=== PATIENT | male | born 1960 | race Caucasian/White ===

== ENCOUNTER 2017-12-09 10:45 | Emergency (ER) | payer SELFPAY ==
[2017-12-09 10:47] VITALS: BP 189/105; PULSE 78; RESP 18; TEMP 36.9; O2SAT 97; BMI 26.4
--- NOTE | 2017-12-09 11:25 | ED.VISSUMM ---
- ER Visit Summary Date of Service: 12/09/17 Chief Complaint: Rash History of Present Illness: The patient is a 57 M with a rash on his right leg. This is very painful. He has noted tiny blisters. No fever or systemic symptoms. No other complaints. Physical Examination: Hypertensive but otherwise vitals unremarkable. Patient has a vesicular erythematous rash over his right medial calf. He is neurovascular intact distally. No overlying warmth or redness. Test Results: None indicated Emergency Department Course and Treatment: Patient has shingles and will be treated with a course of acyclovir, prednisone and Percocet. His prescription database report was negative. Treatment Plan: As above Disposition: Discharged Impression: 1. Shingles right leg This note was generated with [employer] dictation software. It may contain incorrect words, spelling, and punctuation that were not noted in review of the chart prior to signing ED Disposition - Plan for ED Patient: Chief Complaint: Rash Referrals: [facility] Doctor,Out of [Primary Care Provider] -
--- NOTE | 2017-12-09 11:28 | ED.DCSUM_ITS ---
- ER Visit Summary Date of Service: 12/09/17 Chief Complaint: Rash History of Present Illness: The patient is a 57 M with a rash on his right leg. This is very painful. He has noted tiny blisters. No fever or systemic symptoms. No other complaints. Physical Examination: Hypertensive but otherwise vitals unremarkable. Patient has a vesicular erythematous rash over his right medial calf. He is neurovascular intact distally. No overlying warmth or redness. Test Results: None indicated Emergency Department Course and Treatment: Patient has shingles and will be treated with a course of acyclovir, prednisone and Percocet. His prescription database report was negative. Treatment Plan: As above Disposition: Discharged Impression: 1. Shingles right leg This note was generated with [employer] dictation software. It may contain incorrect words, spelling, and punctuation that were not noted in review of the chart prior to signing ED Disposition - Plan for ED Patient: Chief Complaint: Rash Referrals: [facility] Doctor,Out of [Primary Care Provider] -
--- NOTE | 2017-12-09 11:28 | ED.DEP ---
ED Disposition - Plan for ED Patient: Chief Complaint: Rash Instructions: ED Shingles Prescriptions: Oxycodone HCl/Acetaminophen [Percocet 5/325] 1 tab PO Q6H PRN PRN 3 Days #12 tab PRN Reason: Pain Acyclovir [Zovirax] 800 mg PO 5X/DAY #35 tab Prednisone [Deltasone] 60 mg PO DAILY #15 tab Referrals: [facility] Doctor,Out of [NON-STAFF] -
--- NOTE | 2017-12-09 11:31 | DCINST.ED_ITS ---
ED Disposition - Plan for ED Patient: Chief Complaint: Rash Instructions: ED Shingles Prescriptions: Oxycodone HCl/Acetaminophen [Percocet 5/325] 1 tab PO Q6H PRN PRN 3 Days #12 tab PRN Reason: Pain Acyclovir [Zovirax] 800 mg PO 5X/DAY #35 tab Prednisone [Deltasone] 60 mg PO DAILY #15 tab Referrals: [facility] Doctor,Out of [NON-STAFF] -
== END 2017-12-09 11:36 | disposition home or self-care (01) ==
PROVIDERS: Emergency Provider Emergency Medicine
DX: B02.9 Zoster without complications (principal); I10 Essential (primary) hypertension; Z72.0 Tobacco use
CPT/HCPCS: 99282